=== PATIENT | male | born 1995 | race Caucasian/White ===

== ENCOUNTER → 2021-01-14 | Outpatient (REF) ==
--- NOTE | 2021-01-14 13:48 | REP ---
INDICATION: SOB COMPARISON: None. TECHNIQUE: PA and lateral. FINDINGS: The mediastinum and cardiac silhouette are normal. The lung johnson are clear and without acute consolidation, effusion, or pneumothorax. The skeletal structures are intact and normal. IMPRESSION: No acute cardiopulmonary process. <Electronically signed by Kwame Cavanaugh > 01/14/21 [id number]
== END ==
LOC: M PLAIMG 11:44
PROVIDERS: ATTEND Internal Medicine
DX: R06.02 Shortness of breath (principal)